=== PATIENT | female | born 1935 | race African-American/Black ===

== ENCOUNTER 2016-05-06 09:45 | Outpatient (CLI) | payer MEDICARE ==
[2016-05-06 10:08] LABS: Hemoglobin A1c 5.8 % (4.0-6.0)
[2016-05-06 10:13] LABS: Cardiac Risk 2.5 (Less than 4.5)
== END 2016-05-06 09:46 | disposition home or self-care (01) ==
LOC: MADLAB 09:45
PROVIDERS: ATTEND Family Medicine
DX: E78.2 Mixed hyperlipidemia (principal)
CPT/HCPCS: 36415; 80061; 83036

== ENCOUNTER 2016-11-10 12:25 | Outpatient (CLI) | payer MEDICARE | END 2016-11-10 12:26 | disposition home or self-care (01) | LOC: MADLABBHPM 12:25 | PROVIDERS: ATTEND Family Medicine | DX: R30.0 Dysuria (principal) | CPT/HCPCS: 36415; 87086 ==

== ENCOUNTER 2016-11-14 10:32 | Outpatient (CLI) | payer MEDICARE ==
[2016-11-14 10:59] LABS: ALT (SGPT) 41 U/L (8-55); AST (SGOT) 39 U/L (5-34); Albumin 3.6 g/dL (3.4-4.8); Alkaline Phosphatase 166 U/L (40-150); Anion Gap 13 mmol/L (10-20); BUN (Urea Nitrogen) 15 mg/dL (9.8-20.1); Calc. Creatinine Clearance 0 mL/min (70-130); Calcium 9.3 mg/dL (7.8-10.44); Carbon Dioxide 29 mmol/L (23-31); Chloride 105 mmol/L (98-107); Cholesterol 151 mg/dl (< 200 Desired); Estimated GFR-MDRD 68; Globulin 3.9 g/dL (2.4-3.5); Glucose 135 mg/dL (83-110); HDL Cholesterol 51 mg/dL (>60 Neg Risk); LDL Cholesterol, Calculated 89 mg/dL; Potassium 4.1 mmol/L (3.5-5.1); Protein, Total 7.5 g/dL (6.0-8.3); Sodium 143 mmol/L (136-145); Triglycerides 53 mg/dL (Less than 150)
== END 2016-11-14 10:33 | disposition home or self-care (01) ==
LOC: MADLABSP 10:32
PROVIDERS: ATTEND Family Medicine
DX: E78.2 Mixed hyperlipidemia (principal)
CPT/HCPCS: 80053; 80061

== ENCOUNTER 2017-11-08 10:57 | Outpatient (CLI) | payer MEDICARE ==
[2017-11-08 12:12] LABS: ALT (SGPT) 47 U/L (8-55); AST (SGOT) 44 U/L (5-34); Albumin 3.6 g/dL (3.4-4.8); Alkaline Phosphatase 201 U/L (40-150); Anion Gap 12 mmol/L (10-20); BUN (Urea Nitrogen) 21 mg/dL (9.8-20.1); Bilirubin, Total 0.8 mg/dL (0.2-1.2); Calc. Creatinine Clearance 0 mL/min (70-130); Calcium 10.4 mg/dL (7.8-10.44); Carbon Dioxide 28 mmol/L (23-31); Chloride 106 mmol/L (98-107); Estimated GFR-MDRD 65; Globulin 4.2 g/dL (2.4-3.5); Glucose 117 mg/dL (83-110); Potassium 4.6 mmol/L (3.5-5.1); Protein, Total 7.8 g/dL (6.0-8.3); Sodium 141 mmol/L (136-145)
--- NOTE | 2017-11-08 13:38 | RAD ---
RIGHT KNEE 3 VIEWS: HISTORY: Chronic knee pain. FINDINGS: There are marked tricompartment arthritic changes of the knee. Severe medial and lateral compartment narrowing and also marked degenerative change of the patellofemoral joint space. IMPRESSION: Severe arthritic changes of the knee. No acute finding. POS: [facility]
[2017-11-10 14:46] LABS: EliA Thy New Method **** NEW METHOD ****; Thyroglobulin Antibody Less than 12.0 IU/mL (<40 Normal)
== END 2017-11-08 10:58 | disposition home or self-care (01) ==
LOC: MADRAD 10:57
PROVIDERS: ATTEND Family Medicine
DX: M25.561 Pain in right knee (principal); G89.29 Other chronic pain; I10 Essential (primary) hypertension; R94.6 Abnormal results of thyroid function studies; R73.01 Impaired fasting glucose; M17.11 Unilateral primary osteoarthritis, right knee
CPT/HCPCS: 36415; 80053; 83036; 84439; 84443; 84445; 86800

== ENCOUNTER 2018-02-02 11:23 | Emergency (ER) | payer MEDICARE ==
[~2018-02-02 11:23] MED LIST: Iopamidol 370 76% 100 ML VIAL ONE
[2018-02-02] MEDS ORDERED: Ondansetron PF 4 MG/2 ML Vial ONE (11:49)
[2018-02-02] MEDS ORDERED: Sodium Chloride 0.9% 1,000 ML ONE ×3 (11:49→13:14)
[2018-02-02 12:30] LABS: #Basophils 0.1 thou/uL (0.0-0.2); #Lymphocytes 1.6 thou/uL (1.20-3.40); #Neutrophils 9.9 thou/uL (1.40-6.50); %Basophils 1.1 % (0.0-1.0); %Eosinophils 0.1 % (0.0-10.0); %Lymphocytes 11.8 % (21.0-51.0); %Monocytes 8.3 % (0.0-10.0); %Neutrophils 78.6 % (42.0-75.0); Hemoglobin 14.8 g/dL (12.0-16.0); Mean Corpuscular HGB CONC 31.1 g/dL (32.0-36.0); Mean Corpuscular Hemoglobin 31.1 pg (27.0-31.0); Mean Corpuscular Volume 99.9 fL (78.0-98.0); Mean Platelet Volume 11.7 fL (7.4-10.4); Platelet Count 107 thou/uL (130-400); RBC Distribution Width 13.2 % (11.5-14.5); Red Blood Cell (RBC) Count 4.82 mill/uL (4.20-5.40); White Blood Cell (WBC) Count 12.7 thou/uL (4.8-10.8)
[2018-02-02 12:37] LABS: Anisocytosis SLIGHT = 6-15 cells (100X) (0-5/hpf); PLT Morphology Comment Appears Decreased
[2018-02-02 12:42] LABS: ALT (SGPT) 38 U/L (8-55); AST (SGOT) 44 U/L (5-34); Albumin 3.1 g/dL (3.4-4.8); Alkaline Phosphatase 241 U/L (40-150); Anion Gap 21 mmol/L (10-20); BUN (Urea Nitrogen) 21 mg/dL (9.8-20.1); Bilirubin, Total 1.7 mg/dL (0.2-1.2); Calc. Creatinine Clearance 0 mL/min (70-130); Calcium 10.7 mg/dL (7.8-10.44); Carbon Dioxide 20 mmol/L (23-31); Chloride 103 mmol/L (98-107); Estimated GFR-MDRD 33; Globulin 3.7 g/dL (2.4-3.5); Glucose 225 mg/dL (83-110); Lipase 31 U/L (8-78); Potassium 3.8 mmol/L (3.5-5.1); Protein, Total 6.8 g/dL (6.0-8.3); Sodium 140 mmol/L (136-145)
[2018-02-02 12:59] LABS: Bilirubin Small (Negative); Blood, Urine Moderate (Negative); Glucose, Urine (Dipstick) Negative (Negative); Leukocyte Trace (Negative); Nitrite Negative (Negative); Protein, Urine (Dipstick) 100 mg/dL (Neg-Trace)
[2018-02-02] MEDS ORDERED: Piperacillin/Tazobactam 4.5 GM VIAL ONE (13:04)
[2018-02-02] MEDS ORDERED: Sodium Chloride 0.9% 250 ML 250 ML ONE (13:05)
[2018-02-02] MEDS ORDERED: Sodium Chloride 0.9% 100 ML ONE (13:05)
[2018-02-02 13:09] LABS: Clarity Slightly Cloudy (Clear); RBC/HPF 21-50 HPF (0-3)
[2018-02-02 13:10] LABS: Bacteria/HPF 2+ HPF (None Seen)
--- NOTE | 2018-02-02 13:58 | RAD ---
PORTABLE AP CHEST RADIOGRAPH: Date: 02-02-18 History: Nausea, vomiting. FINDINGS: A dual-lead left subclavian AICD device is noted in place. Cardiac silhouette is magnified by project ion. Pulmonary vasculature is within normal limits for the portable technique. Lungs are clear. There is mild left acromioclavicular joint osteoarthritis with degenerative changes in the spine. Vascular calcifications are seen in the thoracic aorta. IMPRESSION: No acute cardiopulmonary process. POS: [facility]
--- NOTE | 2018-02-02 14:06 | CT ---
CT ABDOMEN AND PELVIS WITH IV CONTRAST: 02/02/2018 HISTORY: Left lower quadrant pain that started this morning. Nausea and vomiting. FINDINGS: There is a large, heterogeneous mass seen within the lateral segment of the left hepatic lobe. This large mass measured 11 cm craniocaudal x 9.8 cm AP x 7.4 cm transverse. There is adjacent increased density fluid within the liver, as well as anterior to the liver and in each paracolic gutter. Fluid is also seen adjacent to the spleen. This increased density fluid is worrisome for hemorrhage and m ay be secondary to capsular rupture due to the large hepatic lobe mass. There is a smaller, hypodense lesion seen within the medial aspect of the posterior segment of the ri ght hepatic lobe. There does appear to be a slight lobulated contour of the liver, probably attributa ble to cirrhosis. Post surgical changes related to a cholecystectomy are noted. There is mild nodular prominence of the left adrenal gland, but the prominence of the left adrenal gl and is stable compared to a study in 2007. The right adrenal gland and the spleen have a normal CT appearance. There is a nonobstructing calculus in the inferior pole, left kidney, which measures 1.7 cm. There i s a calculus seen in the region of the expected location of the distal left ureter, measuring 11 mm; however, there is no evidence of hydronephrosis or hydroureter, but this is worrisome for a distal le ft ureteral calculus. The urinary bladder is decompressed. There is increased density fluid in the pelvis, likely related to hemorrhage. There is colonic diverticulosis. Loops of small bowel are normal in caliber. There is a tiny, fat-containing umbilical hernia in a periumbilical location. The visualized lung bases demonstrate evidence of AICD leads with volume loss present at each lung ba se. There is also a small nodular density present in the right lung base, measuring approximately 6 mm. IMPRESSION: 1. Large left hepatic lobe mass with increased density fluid seen in the abdomen and pelvis, worriso me for capsular rupture due to the large left hepatic lobe mass. There is also an additional low den sity lesion in the right hepatic lobe. While metastatic lesions are a possibility, there does appear to be a slight lobulated contour of the liver, probably attributable to cirrhosis, and the large mas s could be related to hepatocellular carcinoma. Correlation with AFP is recommended. 2. Nonobstructing left renal calculus. 3. Distal left ureter calculus, measuring 11 mm without evidence of hydronephrosis or hydroureter. 4. Very tiny right pleural effusion and atelectasis, with a tiny, 5 mm nodular density at the right lung base. The above findings were discussed with Dr. Almeida in the emergency department on 02/02/2018 at 1328 ho urs. CODE CR POS: [facility]
[2018-02-02 14:40] LABS: INR-International Normal Ratio 1.1
[2018-02-02 14:42] LABS: Prothrombin Time 14.5 SEC (12.0-14.7)
[2018-02-02 14:49] LABS: PTT 28.1 SEC (22.9-36.1)
[2018-02-02 14:52] LABS: Critical Call Chem Troponin I no
== END 2018-02-02 14:54 | disposition short-term general hospital (02) ==
LOC: MADERS 11:23
DX: R65.20 Severe sepsis without septic shock (principal); R11.2 Nausea with vomiting, unspecified; N20.2 Calculus of kidney with calculus of ureter; K76.9 Liver disease, unspecified; E78.5 Hyperlipidemia, unspecified; I11.0 Hypertensive heart disease with heart failure; I50.9 Heart failure, unspecified; Z79.899 Other long term (current) drug therapy
CPT/HCPCS: 36430; 51701; 71045; 74177; 80053; 83605; 83690; 84484; 85025; 85610; 85730; 86850; 86900; 86901; 86920; 87040; 87086; 93005; 94760; 96361; 96365; 96367; 96375; 99285; P9016; 81003; 81015; A4353; J2405; J2543; J3370; J7050

== ENCOUNTER 2018-02-19 18:03 | Emergency (ER) | payer MEDICARE ==
[~2018-02-19 18:03] MED LIST changes: -Iopamidol 370 76% 100 ML VIAL ONE; +Iopamidol 370 76% 125 ML VIAL FS ONE
[2018-02-19 19:37] LABS: #Basophils 0.2 thou/uL (0.0-0.2); #Eosinphils 0.1 thou/uL (0.0-0.7); #Lymphocytes 2.3 thou/uL (1.20-3.40); #Monocytes 1.4 thou/uL (0.11-0.59); #Neutrophils 8.4 thou/uL (1.40-6.50); %Basophils 1.4 % (0.0-1.0); %Lymphocytes 18.3 % (21.0-51.0); %Monocytes 11.2 % (0.0-10.0); %Neutrophils 68.1 % (42.0-75.0); Hemoglobin 14.6 g/dL (12.0-16.0); Mean Corpuscular HGB CONC 32.1 g/dL (32.0-36.0); Mean Corpuscular Hemoglobin 31.7 pg (27.0-31.0); Mean Platelet Volume 9.4 fL (7.4-10.4); Platelet Count 136 thou/uL (130-400); RBC Distribution Width 14.2 % (11.5-14.5); White Blood Cell (WBC) Count 12.3 thou/uL (4.8-10.8)
[2018-02-19 19:50] LABS: ALT (SGPT) 71 U/L (8-55); AST (SGOT) 59 U/L (5-34); Albumin 2.6 g/dL (3.4-4.8); Alkaline Phosphatase 439 U/L (40-150); Anion Gap 13 mmol/L (10-20); BUN (Urea Nitrogen) 12 mg/dL (9.8-20.1); Bilirubin, Total 2.4 mg/dL (0.2-1.2); CK (CPK) 13 U/L (29-168); Calc. Creatinine Clearance 0 mL/min (70-130); Calcium 8.6 mg/dL (7.8-10.44); Carbon Dioxide 27 mmol/L (23-31); Chloride 104 mmol/L (98-107); Estimated GFR-MDRD 83; Globulin 4.8 g/dL (2.4-3.5); Glucose 164 mg/dL (83-110); Potassium 3.5 mmol/L (3.5-5.1); Protein, Total 7.4 g/dL (6.0-8.3); Sodium 140 mmol/L (136-145)
[2018-02-19] MEDS ORDERED: Furosemide 40 MG/4 ML VIAL ONE (20:40)
[2018-02-19] MEDS ORDERED: Potassium Chloride 20 MEQ TAB ONE (21:16)
[2018-02-19] MEDS ORDERED: Clopidogrel Bisulfate 75 MG TAB ONE (21:16)
--- NOTE | 2018-02-19 21:19 | RAD ---
CHEST TWO VIEWS: 02/19/18 COMPARISON: 05/20/04, 02/02/18 HISTORY: Dyspnea. FINDINGS: Stable left sided transvenous defibrillator. Slight elongation and atherosclerosis of the aorta. Norm al cardiac silhouette. The pulmonary vessels are slightly prominent. Stable hyperinflation with inter stitial prominence. No consolidation or mass. No pneumothorax or osseous abnormalities. IMPRESSION: Interstitial and alveolar prominence. Correlate for volume overload. POS: [facility]
[2018-02-19] MEDS ORDERED: Enoxaparin Sodium 80 MG/0.8 ML SYRINGE ONE (22:01)
[2018-02-19] MEDS ORDERED: Enoxaparin Sodium 30 MG/0.3 ML SYRINGE ONE (22:01)
[2018-02-19 22:16] LABS: INR-International Normal Ratio 1.1; PTT 25.5 SEC (22.9-36.1); Prothrombin Time 14.3 SEC (12.0-14.7)
--- NOTE | 2018-02-20 00:10 | CT ---
CT ANGIOGRAM OF THE CHEST 02/19/18 HISTORY: Dyspnea. Elevated D-dimer. COMPARISON: None. CORRELATION: Abdomen CT 02/02/18. TECHNIQUE: CT angiogram of the chest is performed in the axial plane. Three dimensional reformatted images are s ubmitted for interpretation. FINDINGS: Heterogeneously enlarged substernal left thyroid lobe, incompletely evaluated. No mediastinal lymphadenopathy or hematoma. Heart size is within normal limits. No pericardial effus ion. The thoracic aorta and upper abdominal aorta have a normal caliber. No periaortic fat stranding. There is interval air attenuation and previous noted left hepatic lobe mass, incompletely evaluated. The trachea and central bronchi are patent. No suspicious masses or consolidation in the lung parench yma. Dependent atelectatic changes are noted. Nonspecific 5 mm nodule in the right superior segment o f the right lower lobe. There is a large filling defect involving the distal central left pulmonary artery with extension int o the left upper lobe, left lower lobe pulmonary artery. There is filling defect involving the right upper lobe pulmonary artery and associated segmental branches. IMPRESSION: 1. 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 2. Interval air attenuation of previously identified left hepatic mass suggesting component of n ecrosis, likely due to recent ablation. 3. 5 mm right lung nodule. 4. Results of the study discussed with Dr. Hossein Russo, 02/19/18 at 9:34 p.m. Code CR POS: [facility]
== END 2018-02-20 00:03 | disposition short-term general hospital (02) ==
LOC: MADERS 18:03
DX: I26.99 Other pulmonary embolism without acute cor pulmonale (principal); C22.8 Malignant neoplasm of liver, primary, unspecified as to type; I11.0 Hypertensive heart disease with heart failure; I50.9 Heart failure, unspecified; E78.5 Hyperlipidemia, unspecified; E66.01 Morbid (severe) obesity due to excess calories; Z79.899 Other long term (current) drug therapy
CPT/HCPCS: 36415; 71046; 71275; 80053; 82550; 83880; 84484; 85025; 85379; 85610; 85730; 93005; 96372; 96374; J1650; J1940

== ENCOUNTER 2018-03-07 10:49 | Emergency (ER) | payer MEDICARE | END 2018-03-07 12:38 | disposition home or self-care (01) | LOC: MADERS 10:49 | DX: R10.9 Unspecified abdominal pain (principal); I11.0 Hypertensive heart disease with heart failure; I50.9 Heart failure, unspecified; E78.5 Hyperlipidemia, unspecified; Z79.899 Other long term (current) drug therapy | CPT/HCPCS: 99283 ==

== ENCOUNTER 2018-03-30 15:02 | Outpatient (CLI) | payer MEDICARE ==
[2018-03-30 15:32] LABS: #Basophils 0.1 thou/uL (0.0-0.2); #Eosinphils 0.1 thou/uL (0.0-0.7); #Lymphocytes 2.6 thou/uL (1.20-3.40); #Monocytes 0.8 thou/uL (0.11-0.59); #Neutrophils 3.5 thou/uL (1.40-6.50); %Basophils 1.6 % (0.0-1.0); %Eosinophils 1.8 % (0.0-10.0); %Lymphocytes 35.8 % (21.0-51.0); %Monocytes 11.6 % (0.0-10.0); %Neutrophils 49.2 % (42.0-75.0); Hemoglobin 13.8 g/dL (12.0-16.0); Mean Corpuscular HGB CONC 30.3 g/dL (32.0-36.0); Mean Corpuscular Hemoglobin 29.7 pg (27.0-31.0); Mean Corpuscular Volume 98.2 fL (78.0-98.0); Mean Platelet Volume 8.5 fL (7.4-10.4); Platelet Count 177 thou/uL (130-400); RBC Distribution Width 14.1 % (11.5-14.5); Red Blood Cell (RBC) Count 4.64 mill/uL (4.20-5.40); White Blood Cell (WBC) Count 7.2 thou/uL (4.8-10.8)
[2018-03-30 16:18] LABS: ALT (SGPT) 61 U/L (8-55); AST (SGOT) 95 U/L (5-34); Albumin 2.9 g/dL (3.4-4.8); Alkaline Phosphatase 530 U/L (40-150); Anion Gap 15 mmol/L (10-20); BUN (Urea Nitrogen) 10 mg/dL (9.8-20.1); Bilirubin, Total 1.4 mg/dL (0.2-1.2); Calc. Creatinine Clearance 0 mL/min (70-130); Calcium 9.3 mg/dL (7.8-10.44); Carbon Dioxide 28 mmol/L (23-31); Chloride 106 mmol/L (98-107); Estimated GFR-MDRD 71; Glucose 147 mg/dL (83-110); Potassium 3.3 mmol/L (3.5-5.1); Protein, Total 6.9 g/dL (6.0-8.3); Sodium 146 mmol/L (136-145)
== END 2018-03-30 15:03 | disposition home or self-care (01) ==
LOC: MADLABBHPM 15:02
PROVIDERS: ATTEND Family Medicine
DX: Z01.818 Encounter for other preprocedural examination (principal)
CPT/HCPCS: 36415; 80053; 85025; 93005; 93010

== ENCOUNTER 2018-04-19 17:50 | Outpatient (CLI) | payer MEDICARE ==
[2018-04-19 18:44] LABS: Clarity Slightly Cloudy (Clear)
[2018-04-19 18:45] LABS: Bacteria/HPF 1+ HPF (None Seen); Bilirubin Small (Negative); Blood, Urine Moderate (Negative); Glucose, Urine (Dipstick) Negative (Negative); Leukocyte Trace (Negative); Nitrite Negative (Negative); Protein, Urine (Dipstick) Trace mg/dL (Neg-Trace); pH, Urine 6.5 (5.0-9.0)
== END 2018-04-19 17:51 | disposition home or self-care (01) ==
LOC: MADLABSP 17:50
PROVIDERS: ATTEND Family Medicine
DX: R30.0 Dysuria (principal)
CPT/HCPCS: 81001; 87086